=== PATIENT | female | born 1950 | race Caucasian/White ===

== ENCOUNTER 2020-10-14 08:54 | Day surgery (SDC) | payer MEDICARE, BC, SELFPAY ==
[2020-10-14] VITALS (10 sets, daily range): BP systolic 112–161; BP diastolic 66–81; PULSE 62–90; RESP 15–64; TEMP 36.2–37.1; O2SAT 16–99; BMI 32.6
[2020-10-14 09:36] LABS: COVID19 -Nasal RAPID Negative (Negative)
[2020-10-14] MEDS: LACTATED RINGERS 1,000 ML 150 ML IV (10:13)
--- NOTE | 2020-10-14 12:26 | PM.HP.1 ---
History of Present Illness History of Present Illness Date Patient Seen: 10/14/20 Time Patient Seen: 12:26 Chief complaint: [facility] – [place] Narrative: Patient is woman here for screening colonoscopy. No prior history of polyps. Her last successful exam was 10 years ago. She had an attempt at 1 3 years ago but it failed due to the prep. Her prep this time she said went well. Patient History Medical History Anxiety Depression Moderate persistent asthma Palpitations Surgical History History of ear surgery History of hip replacement Family & Social History Family History Father Cancer Grandfather Diabetes mellitus Grandmother Cancer Social History: household members spouse Tobacco & Substance use: Smoking Status Never smoker alcohol intake current alcohol intake frequency a few times a week Substance Use Type does not use Meds Home Medications and Allergies Home Medications Medication Instructions Recorded Confirmed Type albuterol sulfate 90 mcg/actuation 1 inhalation INHALATION Q4-6H PRN 05/30/20 10/14/20 Rx breath activated powder inhaler #1 each bupropion HCl 150 mg tablet,12 hr 150 mg PO QAM #90 each 05/30/20 10/14/20 Rx sustained-release buspirone 10 mg tablet 10 mg PO BID #180 tab 05/30/20 10/14/20 Rx citalopram 20 mg tablet 20 mg PO DAILY #90 tab 05/30/20 10/14/20 Rx fluticasone furoate 100 1 inhalation INHALATION DAILY PRN 05/30/20 10/14/20 Rx mcg-vilanterol 25 mcg/dose #28 each inhalation powder tiotropium bromide 1.25 2 puff INHALATION DAILY PRN #4 gram 05/30/20 10/14/20 Rx mcg/actuation mist for inhalation montelukast 10 mg tablet 10 mg PO DAILY 08/27/20 10/14/20 History Vitamin D (with calcium) 1 tab PO DAILY 10/14/20 10/14/20 History Allergies Allergy/AdvReac Type Severity Reaction Status Date / Time sulfamethoxazole Allergy Severe rash Verified 08/27/20 11:28 [From Junra] trimethoprim [From Junra] Allergy Severe rash Verified 08/27/20 11:28 Review of Systems Review of Systems Narrative: History of occasional problems with asthma. She takes as needed medication. Patient has intermittent heartburn in uses an anti acid. Patient has stroke 2 years ago but has no residual deficit. She had prior TIAs. She does not know the cause of her CVA. ROS: Yes All systems reviewed with the patient and are negative except as otherwise documented Exam Vital Signs (past 8 hours): - 10/14/20 09:55 Temperature 98.8 F Pulse Rate 66 Respiratory Rate 16 Blood Pressure 144/78 H Pulse Oximetry 96 Oxygen Delivery Method Room Air Narrative Exam Narrative: Pleasant cooperative patient no apparent distress. Lungs are clear to auscultation. No rales or rhonchi. Heart regular rate and rhythm no murmur gallop. Abdomen is soft nontender without mass. No obvious hernias. Patient is alert and oriented x3. Objective Labs Labs: Laboratory Results - last 24 hr 10/14/20 09:00 COVID-19 PCR Negative Assessment & Plan Assessment & Plan narrative: The patient for a screening colonoscopy. I have discussed the procedure with them. Risks of bleeding, perforation which would necessitate major operation, failure to find remove all lesions, the potential tattoo were all discussed. All questions were answered. They wished to proceed.
--- NOTE | 2020-10-14 12:30 | PM.PREOP ---
Pre-operative Note COVID-19 COVID-19 status: Negative Result date/Date tested (Pos, Neg/Pending): 10/13/20 Interval Note History & Physical reviewed/Exam performed by Physician: Yes Changes to H&P: No ASA Class (for procedural sedation): II
[2020-10-14] MEDS: fentaNYL 250 MCG/5 ML INJ IV (12:45)
[2020-10-14] MEDS: MIDAZOLAM 5 MG/5 ML VIAL IV (12:45)
[2020-10-14] MEDS: diphenhydrAMINE 50 MG/ML VIAL 25 MG IV (12:50)
[2020-10-14] MEDS: FLUMAZENIL 0.5 MG/5 ML MDV 0.2 MG IV (13:07)
[2020-10-14] MEDS: diphenhydrAMINE 50 MG/ML VIAL IV (13:07)
[2020-10-14] MEDS: NALOXONE 0.4 MG/ML VIAL 0.2 MG IV (13:10)
--- NOTE | 2020-10-14 13:20 | PM.OP.ENDO ---
Operative Date/Time/Diagnoses Date of procedure: 10/14/20 Time of procedure: 13:20 Pre-op diagnosis: Screening exam Post-op diagnosis: same Procedure & Clinicians Study performed: Attempted colonoscopy abandoned in the ascending colon. Same procedure as scheduled: Yes Indications: Screening. Last exam that was successful was 10 years ago. Surgeon: Kris France Procedure Notes SCOAP/Timeout: Performed Procedure in detail: The patient was placed in the left lateral decubitus position and underwent IV sedation directed by the surgeon consisting of fentanyl and Versed. Digital exam was remarkable for lax anal sphincter.. The scope was inserted and advanced through the rectum into the sigmoid, descending, transverse, and ascending colon. To get that far I had to reposition the patient and insert a stiffener and still could not get beyond. I ran out of scope in the ascending colon. The patient began to have problems with hypoxia. We stop the procedure inserted and nasal cannula bagged her. She continued to improve and then struggle with maintaining oxygenation. I decided to reverse the patient and she was given Benadryl, in case this is a tonic clonic reaction to the medication(patient was quite stiff and the difficult to bag). The scope was gradually brought out. No Polyps were found. The scope ultimately was retroflexed in the rectum. The appearance was remarkable for large internal hemorrhoids without ulceration.. The scope was removed and the patient tolerated the procedure well. The prep was excellent. Scope withdrawal time: Not applicable Sedation minutes: 35 Specimen(s): none sent Impression: Possible reaction to sedation medications. Post-procedure Recommendations: Other recommendation (Barium enema to complete the exam. Future colonoscopy should be done with deep sedation probably using only propofol.) Follow up: as needed (After barium enema) Disposition: PACU
--- NOTE | 2020-10-14 13:26 | SUR.PHASEI ---
Pt arrived from Endo room, received reversal agents in Endo room. Pt on O2, placed on 4 LPM. Sats 98-99%,pt has dry non productive cough. Denies pain and nausea. decreased O2 to 2 LPM at 1325, sats maintained and O2 turned off. Pt sleepy but easily arrousable to normal talking. Answers appropriately. TM
--- NOTE | 2020-10-14 14:24 | SUR.PHASEII ---
Pt arrived to Phase II recovery s/p endoscopy procedure and PACU. Pt had experienced airway symptoms in Endo requiring administration of narcan and flumazenil, pt was also bagged at that time. Pt being observed (with constant O2 monitoring) x 2 hours before discharge. Now in Phase II the pt is doing well, sitting up in bed reading & using cell phone, able to drink fluids without difficulty. VSS. Discharge instructions discussed with pt, all questions answered. Will continue to monitor until 1515, at which point pt can discharge to home if stable.
--- NOTE | 2020-10-14 14:47 | SUR.OPER ---
Patient started to destat oxygen 75-80% 6L via NC, would not respond to verbal stimuli, Dr France placed a 6mm nasal airway, was ambu bagged sats returned to low 90's, Pt's body was rigid hard to perform jaw thrust, per verbal order from Dr France 25mg IV Benadryl given, states remained in low 90's, colonoscopy resumed. Patients oxygen dropped back into low 80's. Nasal airway has some clotted blood, nasal and mouth suctioned. Verbal order from Dr France give 0.4 mg Flumazenil, she was also given another 50mg of Benadryl, and then 0.4mg narcan, see MAR for times. Patient began to slowly wake up, was responding to verbal commands, taking deep breaths, nasal airway was removed. She was transported to PACU with 5L NC.
== END 2020-10-14 15:28 | disposition home or self-care (01) ==
PROVIDERS: PCP Registered Nurse Diabetes Educator; Referring Provider Registered Nurse Diabetes Educator; Visit Provider Specialist
PROC: 0DJD8ZZ Inspection of Lower Intestinal Tract, Via Natural or Artificial Opening Endoscopic (ICD-10-PCS; CPT 45378; principal; 2020-10-14 10:45)
DX: Z12.11 Encounter for screening for malignant neoplasm of colon (principal); J45.909 Unspecified asthma, uncomplicated; Z86.73 Personal history of transient ischemic attack (TIA), and cerebral infarction without residual deficits; R12 Heartburn; K64.8 Other hemorrhoids; G97.81 Other intraoperative complications of nervous system; Z20.828 Contact with and (suspected) exposure to other viral communicable diseases; Z53.09 Procedure and treatment not carried out because of other contraindication
CPT/HCPCS: G0121; 87635; 99152; 99153; J1200; J2250; J2310; J3010